=== PATIENT | female | born 1980 | race Caucasian/White ===

== ENCOUNTER 2017-09-17 07:56 | Emergency (ER) | payer OTHER ==
[~2017-09-17] VITALS: Ht 152.4 cm; Wt 68.2 kg
[~2017-09-17 07:56] MED LIST: ALDACTONE 25MG25 M1 PO; CIPRO 250MG TA250 MG PO; CIPRO 500MG TA500 MG PO; CIPRO PO; FLOMAX 0.40.4 MG/CAP PO; LEVSIN 0.10.125 MG/T PO; MICROZIDE12.5 MG PO; NO HOME MEDICATIONS; NORCO 325 MG-51 TAB PO; PERCOCET 325 MG1 TA2 PO; PERCOCET 5/321 UDTAB PO; PHENERGAN 25 TA25 MG PO; PHENTERMINE PO; PYRIDIUM 100MG100 MG PO; RELPAX 40MG TAB40 MG PO; SENOKOT S 50 MG1 TAB PO
[2017-09-17 07:59] VITALS: TEMP 97.4
[2017-09-17] MEDS ORDERED: AMITRIPTYLINE H25 M1 PO (08:03)
[2017-09-17 08:54] LABS: COLLECTION METHOD CLEAN CATCH
[2017-09-17 08:57] LABS: BASO # 0.1 (0.0-0.2); BASO % 0.8 % (0.0-2.0); EOS # 0.4 (0.0-0.7); EOS % 4.7 % (0-4.0); GRAN # 5.2 (1.4-6.5); GRAN % 57.7 % (42.2-75.2); HEMATOCRIT 42.1 % (37.0-47.0); HEMOGLOBIN 13.9 g/dl (12.5-16.0); LYMPH # 2.6 (1.2-3.4); LYMPH % 28.2 % (20.0-51.0); MEAN CELL VOLUME 88 fl (80.0-100.0); MEAN CORPUSCULAR HEMOGLOBIN 29 pg (27.0-31.0); MEAN CORPUSCULAR HGB CONC 33 g/dl (33.0-37.0); MEAN PLATELET VOLUME 10.2 fl (7.4-10.4); MONO # 0.7 (0.1-0.6); MONO % 8.1 % (1.7-9.3); PLATELET COUNT 229 K/mm3 (130-400); RED BLOOD COUNT 4.77 M/mm3 (4.10-5.30); REDCELL DISTRIBUTION WIDTH-CV 13.3 % (11.5-14.5)
[2017-09-17 09:05] LABS: PH 6 (5-8); SQUAMOUS EPITHELIAL 0-2 /hpf; URINE APPEARANCE Clear; URINE BACTERIA None Seen /hpf; URINE BILIRUBIN Negative (NEGATIVE); URINE BLOOD 2+ (NEGATIVE); URINE COLOR Yellow; URINE GLUCOSE Negative (NEGATIVE); URINE KETONE Negative (NEGATIVE); URINE LEUKOCYTE ESTERASE Negative (NEGATIVE); URINE NITRATE Negative (NEGATIVE); URINE PROTEIN(semi-quant) Negative (NEGATIVE); URINE UROBILINOGEN Negative (NEGATIVE)
[2017-09-17 09:10] LABS: ALBUMIN 3.8 gm/dL (3.5-5.0); BILIRUBIN,TOTAL 0.7 mg/dL (0.0-1.0); C-REACTIVE PROTEIN 1.2 mg/dL (0.0-0.9); CALCIUM 8.8 mg/dL (8.4-10.2); CREATININE, serum 0.98 mg/dL (0.52-1.25); POTASSIUM 3.6 mmol/L (3.4-5.0); TOTAL PROTEIN 6.6 gm/dL (6.4-8.2)
[2017-09-17] MEDS ORDERED: NORCO 325 MG-51 TAB PO (09:29)
[2017-09-17] MEDS ORDERED: ZOFRAN ODT4 MG PO (09:29)
[2017-09-17 10:03] VITALS: BP 123/71; PULSE 72
== END 2017-09-17 10:05 | disposition home or self-care (01) ==
LOC: COL.ER 07:56
PROVIDERS: Emergency Medicine
DX: R10.32 Left lower quadrant pain (principal); Z87.442 Personal history of urinary calculi; Z90.710 Acquired absence of both cervix and uterus
CPT/HCPCS: J1885; J2405; J7030

== ENCOUNTER 2018-11-30 09:50 | Emergency (ER) | payer BC ==
[~2018-11-30] VITALS: Ht 152.4 cm; Wt 71.8 kg
[~2018-11-30 09:50] MED LIST changes: +AMITRIPTYLINE H25 M1 PO; +ZOFRAN ODT4 MG PO
[2018-11-30 09:51] VITALS: TEMP 98
[2018-11-30 10:45] LABS: ALBUMIN 3.9 gm/dL (3.5-5.0); BILIRUBIN,TOTAL 0.4 mg/dL (0.0-1.0); CREATININE, serum 1.17 mg/dL (0.52-1.25); POTASSIUM 3.7 mmol/L (3.4-5.0); TOTAL PROTEIN 6.8 gm/dL (6.4-8.2)
[2018-11-30 10:46] LABS: BASO # 0.1 (0.0-0.2); BASO % 0.9 % (0.0-2.0); EOS # 0.2 (0.0-0.7); EOS % 2.9 % (0-4.0); GRAN # 3.9 (1.4-6.5); GRAN % 59.6 % (42.2-75.2); HEMATOCRIT 42.6 % (37.0-47.0); HEMOGLOBIN 14.2 g/dl (12.5-16.0); LYMPH % 30.8 % (20.0-51.0); MEAN CELL VOLUME 88 fl (80.0-100.0); MEAN CORPUSCULAR HEMOGLOBIN 29 pg (27.0-31.0); MEAN CORPUSCULAR HGB CONC 33 g/dl (33.0-37.0); MEAN PLATELET VOLUME 10.3 fl (7.4-10.4); MONO # 0.4 (0.1-0.6); MONO % 5.6 % (1.7-9.3); PLATELET COUNT 233 K/mm3 (130-400); RED BLOOD COUNT 4.85 M/mm3 (4.10-5.30); REDCELL DISTRIBUTION WIDTH-CV 12.6 % (11.5-14.5)
[2018-11-30 11:01] LABS: PROLACTIN 59.7 ng/mL (3.0-18.6)
[2018-11-30] MEDS ORDERED: KEPPRA 500MG500 MG PO (12:09)
[2018-11-30] MEDS ORDERED: ATIVAN 1MG T1 MG/TAB PO (12:09)
[2018-11-30 12:47] VITALS: BP 121/77; PULSE 108
== END 2018-11-30 12:49 | disposition home or self-care (01) ==
LOC: COL.ER 09:50
PROVIDERS: Emergency Medicine
DX: R56.9 Unspecified convulsions (principal); G43.909 Migraine, unspecified, not intractable, without status migrainosus; Z87.442 Personal history of urinary calculi
CPT/HCPCS: J1953; J2060; J7030

== ENCOUNTER 2019-01-01 15:15 | Emergency (ER) | payer BC ==
[~2019-01-01] VITALS: Ht 152.4 cm; Wt 72.3 kg
[~2019-01-01 15:15] MED LIST changes: +ATIVAN 1MG T1 MG/TAB PO; +KEPPRA 500MG500 MG PO
[2019-01-01 15:17] VITALS: TEMP 98.3
[2019-01-01 17:30] VITALS: BP 117/75; PULSE 73
== END 2019-01-01 17:33 | disposition home or self-care (01) ==
LOC: COL.ER 15:15
DX: G97.1 Other reaction to spinal and lumbar puncture (principal); G43.909 Migraine, unspecified, not intractable, without status migrainosus; Z90.710 Acquired absence of both cervix and uterus; Z87.442 Personal history of urinary calculi
CPT/HCPCS: J2550; J7030

== ENCOUNTER → 2019-02-07 | Outpatient (CLI) | payer BC | LOC: COL.RAD 08:56 | DX: G40.309 Generalized idiopathic epilepsy and epileptic syndromes, not intractable, without status epilepticus (principal); H47.211 Primary optic atrophy, right eye; G43.119 Migraine with aura, intractable, without status migrainosus | CPT/HCPCS: A9585 ==